=== PATIENT | male | born 1945 | race Asian ===

== ENCOUNTER 2024-12-14 07:15 | Day surgery (SDC) | payer OTHER, MEDICAID, SELFPAY ==
--- OUTSIDE RECORDS SUMMARY | 2024-10-29 10:09 | XMS_ITS | Patient Health Record ---
Author Organization [facility] Address [address] [place] [address] Care Team Providers Care Capital Campaign Fundraiser Name Role Phone Tabitha Chapman Primary Care Provider Unavailab Francisco Baker Unavailable [phone] Allergies No Known Allergies Reason For Referral Referring Provider First Name Tabitha Referring Provider Last Name Adela Referring Provider Speciality Internal M edicine Referred Organization [facility] Referred Provider Francisco Hinds Referred Address [address] [facility],[place], [place],[address],[place] Referred Provider Specialty Gastroentero logy General Notes Oma Perez 2024 03:50:02 PM >requested a dom referral from Dr. Chapman's office for visit with Dr. Hinds on 09-09-24 Clinical Notes Oma Perez 2024 03:52:13 PM >no referral required per Dr. Chapman's office Referral Priority Routine Medications Medication SIG (Take, Route, Frequency, Duration) Notes Start Date End Date Status Atorvastatin Calcium 80 MG 1 tablet Oral ly Once a day for 30 day(s) 09/09/2024 Active Metoprolol Succinate 25 MG 1 capsule Ora lly Once a day for 30 day(s) 09/09/2024 Active metFORMIN HCl ER 500 MG 1 tablet with ev ening meal Orally Once a day for 30 day(s) 09/09/2024 Active Aspirin 81 81 MG 1 tablet Orally Once a day for 30 day(s) 09/09/2024 Active Ciprofloxacin HCl 500 MG 1 tablet Orally every 12 hrs for 3 day(s) 09/09/2024 Active HumaLOG 100 UNIT/ML as directed Subcutaneous 09/09 Active Tamsulosin HCl 0.4 MG 1 capsule Orally O nce a day for 30 day(s) 09/09/2024 Active Furosemide 20 MG 1 tablet Orally Once a day for 30 day(s) 09/09/2024 Active Fluconazole 150 MG 1 tablet Orally for 10 day(s) 09/09/2024 Active Nitrofurantoin Macrocrystal 100 MG 1 capsule at bedtime with food or milk Orally Once a day for 10 day(s) 09/09/2024 Active Finasteride 5 MG 1 tablet Orally Once a day for 30 day(s) 09/09/2024 Active Immunizations Vaccine Route Administration Date Status Comme nts Influenza Unknown 12/11/2023 Administered Social History Tobacco Use: Social History Observation Description Date Details (start date - stop date) Never Smoker NA - NA Tobacco Control (Standard) Question Answer Notes Tobacco use: Nonsmoker AUDIT-C (Standard) Question Answer Notes Did you have a drink containing alcohol in the p ast year? No Points 0 Interpretation Negative Section Notes: Nonsmoker; no alcohol Problems Problem Type SNOMED Code ICD Code Onset Dates Problem Status W/U Status Risk Notes Problem Iron deficiency anemia (D50.9) Active confirmed Vital Signs Temperature 96.9 degrees Fahrenheit 09/09/2024 Blood pressure diastolic 01 mm Hg 09/09/2024 Height 66 in 09/09/2024 Blood pressure systolic 001 mm Hg 09/09/2024 Weight 154 lbs 09/09/2024 BMI 24.85 kg/m2 09/09/2024 Procedures Procedure Date Ordered Date Performed Result Body Sit e UPPER GI ENDOSCOPY 09/09/2024 N/A COLONOSCOPY 09/09/2024 N/A Encounters Encounter Location Date Provider Diagnosis [facility] [address] [place] [phone] 09/09/2024 Francisco Hinds Iron deficiency anemia D50.9 and Bloating R14.0 [facility] [address] [place] [phone] 09/09/2024 Francisco Hinds [facility] [address] [place] [phone] 09/10/2024 Francisco Hinds Assessments Encounter Date Diagnosis (ICD Code) Assessment Notes Treatment Notes Treatment Clinical Notes Section Notes 09/09/2024 Bloating (ICD-10 - R14.0) Need U/S, CT report, or any other abdominal xray reports from Dr. Chapman Overall, Mr. Funez appears well and does not seem to be having any particularly worrisome GI complaints at the present time. While he was found to have a mild anemia earlier in the year he seems to feel well with good energy and without any signs of bleeding. He does describe that he walks several miles every day.His abdominal symptoms seem to be nonspecific and not particularly worrisome at this time. We did review that it might be related to his diet given that it is quite spicy, he is now close to 81 years old, and perhaps is not tolerating it as well as he used to. I will obtain a copy of his ultrasound report for my review. I do not think he needs a CT scan of the abdomen at this time but that may need to be reevaluated depending upon the results of his upper endoscopy and colonoscopy. I did recommend that he undergo both an upper endoscopy and colonoscopy for evaluation of the iron deficiency anemia so as to rule out any possibilities of GI neoplasm, colon polyps, angiodysplasias, silent gastritis or ulcer disease with associated H.pylori, and celiac disease with iron malabsorption. Full consent has been obtained from him for both procedures, including risks of bleeding and perforation. The procedures will be done with monitored anesthesia care. He was given the below list of instructions regarding adjustment of his medications for the procedure. He will also require cardiology clearance prior to the procedures as well since he is cared for in [place] in that regard and the anesthesiologists will need that information prior to the procedures. I shall repeat a CBC and iron profile today to be sure it has not dropped significantly since the laboratories I saw from April. Mr. Funez and his son were comfortable with this plan. Thank you again for allowing me to participate in Mr. Funez's care. I shall continue to keep you advised of his progress. 09/09/2024 Iron deficiency anemia (ICD-10 - D50.9) Overall, Mr. Funez appears well and does not seem to be having any particularly worrisome GI complaints at the present time. While he was found to have a mild anemia earlier in the year he seems to feel well with good energy and without any signs of bleeding. He does describe that he walks several miles every day.His abdominal symptoms seem to be nonspecific and not particularly worrisome at this time. We did review that it might be related to his diet given that it is quite spicy, he is now close to 81 years old, and perhaps is not tolerating it as well as he used to. I will obtain a copy of his ultrasound report for my review. I do not think he needs a CT scan of the abdomen at this time but that may need to be reevaluated depending upon the results of his upper endoscopy and colonoscopy. I did recommend that he undergo both an upper endoscopy and colonoscopy for evaluation of the iron deficiency anemia so as to rule out any possibilities of GI neoplasm, colon polyps, angiodysplasias, silent gastritis or ulcer disease with associated H.pylori, and celiac disease with iron malabsorption. Full consent has been obtained from him for both procedures, including risks of bleeding and perforation. The procedures will be done with monitored anesthesia care. He was given the below list of instructions regarding adjustment of his medications for the procedure. He will also require cardiology clearance prior to the procedures as well since he is cared for in [place] in that regard and the anesthesiologists will need that information prior to the procedures. I shall repeat a CBC and iron profile today to be sure it has not dropped significantly since the laboratories I saw from [place]. Mr. Funez and his son were comfortable with this plan. Thank you again for allowing me to participate in Mr. Funez's care. I shall continue to keep you advised of his progress. Plan Of Treatment Pending Test Test Name Order Date UPPER GI ENDOSCOPY 09/09/2024 COLONOSCOPY 09/09/2024 IRON + IBC (FE) 09/09/2024 CBC w DIFF 09/09/2024 Ferritin 09/09/2024 Next Appt Details Provider Name:Francisco Levin Lizet , 12/14/2024 08:30:00 AM, [address] [place] [address] , [place], [place], [phone], Insurance Providers Payer Name Payer Address Payer Phone Subscriber Number Group Number Insured Name Patient Relationship to Insured Coverage Start Date Coverage End Date [facility] [address] [place] [id number] SHANICE FUNEZ Self - patient is the insured Medical (General) History Medical History History ICD Code IDDM Coronary artery --followed a t [facility]---stents placed in [place], and [place]G [place] Denies AR,CVA,Lung disease,renal disease hyperlipidemia BPH UTI Surgical History Surgery Date(Month/Year) Appendectomy 3V CABG 2014
--- OUTSIDE RECORDS SUMMARY | 2024-10-29 10:09 | XMS_ITS | Clinical Summary ---
Author Organization [facility] [address] Address [address] [place] [address] Phone Care Team Providers Care Testing Specialist Name Role Phone Tabitha Chapman MD Primary Care Provider [phone] Encounters Date Type Department Care Team Description 08/31/2024 Lab Requisition [facility] Lab [address] [facility] [place] [phone] Tabitha Chapman MD Type 2 diabetes mellitus with hyperglycemia (CMS/HCC V24, CMS/HCC V28) from Last 3 Months Surgical History Surgery Date Site/Laterality Comments CORONARY ARTERY BYPASS GRAFT PROCEDURE: HISTORICAL CABG OTHER SURGICAL HISTORY PROCEDURE: DRUG-ELUTING STENTS, SINGLE COLONOSCOPY PROCEDURE: HISTORICAL COLONOSCOPY Medical History Medical History Date Comments Anemia DX:Anemia Chronic ischemic heart disease D X:Chronic ischemic heart disease Diabetes mellitus type 2, co ntrolled, with complications (CMS/HCC V24, CMS/HCC V28) DX:Diabetes mellitus type 2, controlled, with complications ([facility]) Social History Tobacco Use Types Packs/Day Years Used Date Smoking Tobacco: Never Assessed Sex and Gender Information Value Date Recorded Sex Assigned at Not on file Legal Sex Male 2:43 AM EST Gender Identity Not on file Sexual Orientation Not on file Obstetrics History Last Filed Vital Signs Vital Sign Reading Time Taken Comments Blood Pressure 124/54 12/04/2021 2:10 PM EDT Pulse 70 12/04/2021 2:10 PM EDT Temperature - - Respiratory Rate - - Oxygen Saturation - - Inhaled Oxygen Concentration - - Weight 69.2 kg (152 lb 9.6 oz) 12/04/2021 2:10 P M EDT Height 154.9 cm (5' 1 ) 12/04/2021 2:10 PM EDT Body Mass Index 28.83 12/04/2021 2:10 PM EDT Plan of Treatment Health Maintenance Due Date Last Done Comments Diabetes: Annual Foot Exam 02/01/1955 Diabetes: Annual Retina Eye Exam 02/01/1955 DTaP,Tdap,and Td Vaccines (1 - Tdap) 1965 Pneumococcal Vaccine: 50+ Years (1 of 2 - PCV) 1965 Zoster Vaccines (1 of 2) 02/01/1996 RSV Immunization Adult Patients (1 - 1-dose 75+ series) 2021 Colorectal Cancer Screening: Stool Based Tests (FOBT/FIT) 02/25/2022 Falls Risk Assessment 02/25/2022 Hepatitis C Screening 02/25/2022 Medicare Annual Wellness Visit 02/25/2022 Social Influencers of Health Screening 02/25/2022 COVID-19 Vaccine (1 - 2023-2 5 season) 2023 Depression Screening 03/25/2024 Diabetes: Blood Sugar Contro l Test (HGBA1C) 11/11/2024 05/14/2024 Influenza Vaccine (#1) 2024 Diabetes: Annual Urine Albumin-Creatinine Ratio (uACR) 05/14/2025 05/14/2024 Diabetes: Annual GFR (Glomerular Filtration Rate) 07/24/2025 07/24/2024, 05/14/2024 Cholesterol Screening (Lipid Panel) 05/14/2029 05/14/2024 HIB Vaccines Aged Out No longer eligi ble based on patient's age to complete this topic HPV Vaccines Aged Out No longer eligi ble based on patient's age to complete this topic Hepatitis A Vaccines Aged Out No long er eligible based on patient's age to complete this topic Hepatitis B Vaccines Aged Out No long er eligible based on patient's age to complete this topic IPV Vaccines Aged Out No longer eligi ble based on patient's age to complete this topic MMR Vaccines Aged Out No longer eligi ble based on patient's age to complete this topic Meningococcal ACWY Vaccine Aged Out N o longer eligible based on patient's age to complete this topic Meningococcal B Vaccine Aged Out No l onger eligible based on patient's age to complete this topic RSV Immunization Patients Under 20 months Aged Out No longer eligible b ased on patient's age to complete this topic Varicella Vaccines Aged Out No longer eligible based on patient's age to complete this topic Procedures Procedure Name Priority Date/Time Associated Diagnosis Comments EXTERNAL COLONOSCOPY REPORT Routine 08/26/2024 10:45 AM EDT COMPREHENSIVE METABOLIC PANEL Routine 07/24/2024 11:39 AM EDT DM type 2 (diabetes mellitus, type 2) ([facility] V24, [facility] V28) Encounter for long-term (current) use of high-risk medication Abnormal blood chemistry Screening for endocrine, metabolic, and immunity disorder MICROALBUMIN CREATININE URINE RATIO Routine 05/14/2024 8:56 AM EST Gastric ulcer due to Helicobacter pylori Type II or unspecified type diabetes mellitus with renal manifestations, uncontrolled(250.42) ([facility] V24, [facility] V28) Enlarged prostate with urinary obstruction Elevated prostate specific antigen (PSA) HEMOGLOBIN A1C Routine 05/14/2024 8:47 AM EST Gastric ulcer due to Helicobacter pylori Type II or unspecified type diabetes mellitus with renal manifestations, uncontrolled(250.42) ([facility] V24, [facility] V28) Enlarged prostate with urinary obstruction Elevated prostate specific antigen (PSA) LIPID PANEL WITH REFLEX TO DIRECT LDL Routine 05/14/2024 8:47 AM EST Gastric ulcer due to Helicobacter pylori Type II or unspecified type diabetes mellitus with renal manifestations, uncontrolled(250.42) ([facility] V24, [facility] V28) Enlarged prostate with urinary obstruction Elevated prostate specific antigen (PSA) from Last 3 Months or Most Recently Relevant to Health Maintenance Results * External Colonoscopy Report (08/26/2024 10:45 AM EDT) Anatomical Region Laterality Modality Endoscopy us Historical Provider GI~PROCEDURE ORDERABLES F inal Result * (ABNORMAL) Comprehensive metabolic panel (07/24/2024 11:39 AM EDT) Sodium 138 133 - 145 mmol/L LAB CHEMISTRY METHOD 07/24/2024 1:35 PM EDT [facility] Potassium 4.3 3.5 - 5.5 mmol/L LAB CHEMISTRY METHOD 07/24/2024 1:35 PM [facility] Chloride 106 96 - 110 mmol/L LAB CHEMISTRY METHOD 07/24/2024 1:35 PM [facility] CO2 26 21 - 32 mmol/L LAB CHEMISTRY METHOD 07/24/2024 1:35 PM [facility] Anion Gap 6 3 - 11 LAB CHEMISTRY METHOD 07/24/2024 1:35 PM [facility] Glucose 109(H) 70 - 100 mg/dL LAB CHEMISTRY METHOD 07/24/2024 1:35 PM [facility] BUN 11 5 - 25 mg/dL LAB CHEMISTRY METHOD 07/24/2024 1:35 PM [facility] Creatinine 1.08 0.70 - 1.30 mg/dL LAB CHEMISTRY METHOD 07/24/2024 1:35 PM [facility] eGFR 70 >=60 mL/min/1. 73m2 LAB CHEMISTRY METHOD 07/24/2024 1:35 PM [facility] Comment:Calculation based on the Chronic Kidney Disease Epidemiology Collaboration (CKD-EPI) equation refit without adjustment for race. BUN/Creatinine Ratio 10.2 LAB CHEMISTRY METHOD 07/24/2024 1:35 PM [facility] Calcium 9.3 8.5 - 10.5 mg/dL LAB CHEMISTRY METHOD 07/24/2024 1:35 PM [facility] AST (SGOT) 12 10 - 42 unit/L LAB CHEMISTRY METHOD 07/24/2024 1:35 PM [facility] ALT (SGPT) 18 10 - 60 unit/L LAB CHEMISTRY METHOD 07/24/2024 1:35 PM [facility] Alkaline Phosphatase 60 42 - 121 unit/L LAB CHEMISTRY METHOD 07/24/2024 1:35 PM [facility] Total Protein 7.2 6.0 - 8.0 g/dL LAB CHEMISTRY METHOD 07/24/2024 1:35 PM EDT [facility] Albumin 3.7 3.2 - 5.0 g/dL LAB CHEMISTRY METHOD 07/24/2024 1:35 PM EDT [facility] Total Bilirubin 0.8 0.0 - 1.4 mg/dL LAB CHEMISTRY METHOD 07/24/2024 1:35 PM EDT [facility] Blood Venous blood specimen / Unknown Venipuncture / Unknown 07/24/2024 11:39 AM EDT 07/24/2024 11:51 AM EDT us Tabitha Chapman MD LAB BLOOD ORDERABLES Final Re sult Performing Organization Address [facility]/ZIP Co de Phone Number [facility] [address] [place] [address], [place] [phone] * (ABNORMAL) Microalbumin creatinine urine ratio (05/14/2024 8:56 AM EST) Creatinine, Urine 206.0 mg/dL LAB CHEMISTRY METHOD 05/14/2024 10:44 AM EST [facility] Microalb, Ur 50.4(H) 0.0 - 29.0 mg/L LAB CHEMISTRY METHOD 05/14/2024 10:44 AM EST [facility] Microalb/Crea t Ratio 24 <30 mg/g creat LAB CHEMISTRY METHOD 05/14/2024 10:44 AM EST [facility] Urine Urine specimen obtained by clean catch procedure / Unknown Non-blood Collection / Unknown 05/14/2024 8:56 AM EST 05/14/2024 8:56 AM EST us Tabitha Chapman MD LAB URINE ORDERABLES Final Re sult Performing Organization Address [facility]/ZIP Co de Phone Number [facility] [address] [place] [address], [place] [phone] * (ABNORMAL) Lipid panel with reflex to direct LDL (05/14/2024 8:47 AM EST) Cholesterol 111 0 - 200 mg/dL LAB CHEMISTRY METHOD 05/14/2024 10:52 AM EST [facility] Triglycerides 117 0 - 150 mg/dL LAB CHEMISTRY METHOD 05/14/2024 10:52 AM [facility] HDL 34(L) >=40 mg/dL LAB CHEMISTRY METHOD 05/14/2024 10:52 AM [facility] LDL Calculated 54 0 - 100 mg/dL LAB CHEMISTRY METHOD 05/14/2024 10:52 AM [facility] VLDL Cholesterol Bubba 23.4 mg/dL LAB CHEMISTRY METHOD 05/14/2024 10:52 AM [facility] Non HDL Chol. (LDL+VLDL) 77 <145 mg/dL LAB CHEMISTRY METHOD 05/14/2024 10:52 AM [facility] Chol/HDL Ratio 3.3 0.0 - 4.4 LAB CHEMISTRY METHOD 05/14/2024 10:52 AM [facility] Blood Venous blood specimen / Unknown Venipuncture / Unknown 05/14/2024 8:47 AM EST 05/14/2024 8:55 AM EST us Tabitha Chapman MD LAB BLOOD ORDERABLES Final Re sult [facility] [address] [place] [address], * (ABNORMAL) Hemoglobin A1c (05/14/2024 8:47 AM EST) Hemoglobin A1C 10.1(H) <6.5 % LAB CHEMISTRY METHOD 05/14/2024 2:20 PM [facility] Mean Bld Glu Estim. 243 mg/dL LAB CHEMISTRY METHOD 05/14/2024 2:20 PM EST [facility] Blood Venous blood specimen / Unknown Venipuncture / Unknown 05/14/2024 8:47 AM EST 05/14/2024 8:47 AM EST Tabitha Chapman MD LAB BLOOD ORDERABLES Final Re sult [facility] [address] [place] [address], from Last 3 Months or Most Recently Relevant to Health Maintenance Insurance MEDICAID - [place] [facility] [employer] Care Teams Testing Specialist Relationship Specialty Start Date End Date Tabitha Chapman MD [address] [facility] [address] [place], [place] PCP - General Internal Medicine 07/27/21
[2024-12-10 14:13] VITALS: BMI 24.9
--- NOTE | 2024-12-11 13:04 | HO.ANESPROP2 ---
Documented by User: Soraya Power NP 12/11/24 13:54 HPI - Anesthesia Eval Consult details Narrative: 79yo M for Upper Endoscopy and Colonoscopy CAD s/p stent 2004, CABG x 3 2014 - no cardiology follow up in 10 years Per daughter, pt asymptomatic with walks outside daily. Case reviewed with LM and Dr Hinds - will obtain EKG and lytes on DOS and eval PMFSH Past Medical History Medical History Vitamin B12 deficiency Post cardiotomy syndrome CKD (chronic kidney disease) stage 3, GFR 30-59 ml/min Elevated PSA Hydrocele Non-ischemic cardiomyopathy HTN (hypertension) Myocardial infarction Anemia UTI (urinary tract infection) BPH (benign prostatic hyperplasia) Hx of hyperlipidemia Diabetes Surgical History Surgical History Hx of cardiac catheterization (~11/2014) Hx of cystoscopy History of coronary artery stent placement (~2003) Hx of CABG (~01/05/15) Hx of appendectomy Social History Social History Patient Tobacco Use Status: Never used Tobacco Use of substances other than those prescribed or required for medical reasons: No Are you DNR?: No Advance Directives: No Advance Directives Information Provided: Yes Poor oral hygiene: No Meds Allergies Allergy/AdvReac Type Severity Reaction Status Date / Time empagliflozin (From Allergy Stomach Verified 12/14/24 07:47 Jardiance) Upset lisinopril Allergy Stomach Verified 12/14/24 07:47 Upset Home Medications ?Medication ?Instructions ?Recorded ?Confirmed ?Last Taken ?Type aspirin 81 mg tablet,delayed 81 mg PO DAILY 12/10/24 12/10/24 12/12/24 History release atorvastatin 80 mg tablet 80 mg PO DAILY 12/10/24 12/10/24 Unknown History ciprofloxacin HCl 500 mg tablet 500 mg PO BID 12/10/24 12/10/24 Unknown History finasteride 5 mg tablet 5 mg PO DAILY 12/10/24 12/10/24 Unknown History fluconazole 150 mg tablet 150 mg PO DIRECTED 12/10/24 12/10/24 Unknown History furosemide 20 mg tablet 20 mg PO DAILY 12/10/24 12/10/24 Unknown History insulin lispro 100 unit/mL 1 sliding scale dose subcut 12/10/24 12/10/24 12/14/24 History subcutaneous cartridge (Humalog USEASDIRECTD U-100 Insulin) metformin 500 mg tablet,extended 1,000 mg PO BID 12/10/24 12/10/24 Unknown History release 24 hr metoprolol tartrate 25 mg tablet 25 mg PO BID 12/10/24 12/10/24 12/14/24 History nitrofurantoin 100 mg capsule 100 mg PO BEDTIME 12/10/24 12/10/24 Unknown History tamsulosin 0.4 mg capsule 0.4 mg PO BEDTIME 12/10/24 12/10/24 Unknown History Exam Height,Weight and Vital Signs: Height 5 ft 6 in Weight 69.853 kg Assessment and Plan Assessment Anesthesia Assessment: Chart Reviewed Documented by User: Kailyn Carrizales MD 12/14/24 08:40 PMFSH Past Medical History Medical History Vitamin B12 deficiency Post cardiotomy syndrome CKD (chronic kidney disease) stage 3, GFR 30-59 ml/min Elevated PSA Hydrocele Non-ischemic cardiomyopathy HTN (hypertension) Myocardial infarction Anemia UTI (urinary tract infection) BPH (benign prostatic hyperplasia) Hx of hyperlipidemia Diabetes Family History Family history of problems with anesthesia: No Surgical History Surgical History Hx of cardiac catheterization (~11/2014) Hx of cystoscopy History of coronary artery stent placement (~2003) Hx of CABG (~01/05/15) Hx of appendectomy History of Problems with Anesthesia: No Social History Social History Patient Tobacco Use Status: Never used Tobacco Use of substances other than those prescribed or required for medical reasons: No Are you DNR?: No Advance Directives: No Advance Directives Information Provided: Yes Poor oral hygiene: No Meds Allergies Allergy/AdvReac Type Severity Reaction Status Date / Time empagliflozin (From Allergy Stomach Verified 12/14/24 07:47 Jardiance) Upset lisinopril Allergy Stomach Verified 12/14/24 07:47 Upset Home Medications ?Medication ?Instructions ?Recorded ?Confirmed ?Last Taken ?Type aspirin 81 mg tablet,delayed 81 mg PO DAILY 12/10/24 12/10/24 12/12/24 History release atorvastatin 80 mg tablet 80 mg PO DAILY 12/10/24 12/10/24 Unknown History ciprofloxacin HCl 500 mg tablet 500 mg PO BID 12/10/24 12/10/24 Unknown History finasteride 5 mg tablet 5 mg PO DAILY 12/10/24 12/10/24 Unknown History fluconazole 150 mg tablet 150 mg PO DIRECTED 12/10/24 12/10/24 Unknown History furosemide 20 mg tablet 20 mg PO DAILY 12/10/24 12/10/24 Unknown History insulin lispro 100 unit/mL 1 sliding scale dose subcut 12/10/24 12/10/24 12/14/24 History subcutaneous cartridge (Humalog USEASDIRECTD U-100 Insulin) metformin 500 mg tablet,extended 1,000 mg PO BID 12/10/24 12/10/24 Unknown History release 24 hr metoprolol tartrate 25 mg tablet 25 mg PO BID 12/10/24 12/10/24 12/14/24 History nitrofurantoin 100 mg capsule 100 mg PO BEDTIME 12/10/24 12/10/24 Unknown History tamsulosin 0.4 mg capsule 0.4 mg PO BEDTIME 12/10/24 12/10/24 Unknown History Exam Airway Mallampati Class: II TM Dist: >3cm Neck ROM: Limited Heart: rrr Lungs: cta Assessment and Plan Assessment Anesthesia Assessment: Anesthesia Plan Discussed Final Anesthetic Review Family History of Problems with Anesthesia: No History of Problems with Anesthesia: No NPO: Yes ASA Class: III Final Preanesthetic Review: No Changes in Pt Med Stat, Meds/Allgs Chart Reviewed, Consent Obtained/Reviewed and Anes Risks/Benef Reviewed Patient Risk: Intermediate Procedure Risk: Low Anesthetic Plan Anesthetic Plan: MAC: and Agree w/ Assess. and Plan Disposition: Standard PACU
--- NOTE | 2024-12-14 07:29 | ECG_ITS ---
Test Reason : PREOP Blood Pressure : */* mmHG Vent. Rate : 48 BPM Atrial Rate : 48 BPM P-R Int : 138 ms QRS Dur : 94 ms QT Int : 438 ms P-R-T Axes : 37 39 70 degrees QTcB Int : 391 ms Sinus bradycardia Otherwise normal ECG No previous ECGs available Referred By: Soraya Power Electronically Signed By: Ronnie Perez
[2024-12-14 07:33] VITALS: BMI 24.7
[2024-12-14 08:10] VITALS: BP 163/61; PULSE 54; RESP 16; TEMP 36.1; O2SAT 99
[2024-12-14 08:11] LABS: MANUAL DIFF FLAG NO
[2024-12-14 08:16] LABS: Hematocrit 41.8 % (42.0-52.0); Hemoglobin 13.8 g/dl (14.0-18.0); Imm Gran Abs Auto 0.04 X10*3/uL (0.00-0.03); Imm Gran Pct Auto 0.3 % (0.0-0.4); Lymphocytes Absolute Auto 2.3 X10*3/uL (1.2-4.9); Mean Corpuscular HGB Conc 33.0 g/dl (31.0-36.0); Mean Corpuscular Hemoglobin 27.8 pg (27.0-33.0); Mean Corpuscular Volume 84.1 fL (80.0-98.0); NRBC Abs Auto 0.000 X10*3/uL (0.0-0.012); NRBC Pct Auto 0.0 /100WBC (0.0-0.2); Platelet Count 227 X10*3/uL (160-400); Red Blood Count 4.97 X10*6/uL (4.60-5.80); White Blood Count 11.8 X10*3/uL (4.8-10.8)
[2024-12-14 08:17] LABS: Glucose, Whole Blood 120 mg/dL (60-115)
[2024-12-14 08:22] VITALS: PULSE 49
[2024-12-14 08:26] LABS: Anion Gap 11 (12-20); Blood Urea Nitrogen 8 mg/dL (9-16); Calcium 9.4 mg/dL (8.4-10.2); Carbon Dioxide 25 mmol/L (22-29); Chloride 108 mmol/L (96-108); Creatinine Clr Calc Pharmacy 52.3; Estimated Glomerular Filt Rate > 60; Potassium 4.0 mmol/L (3.3-5.1); Sodium 140 mmol/L (135-145)
[2024-12-14] MEDS: Lactated Ringers 1,000 ML 100 ML IVCONT (08:27)
[2024-12-14 08:35] LABS: INTERNATIONAL NORM RATIO 1.0 (0.9-1.1); Prothrombin Time 11.0 SEC (10.9-12.4)
[2024-12-14 10:05] VITALS: BP 106/48; PULSE 52; RESP 15; TEMP 36.1; O2SAT 99
--- NOTE | 2024-12-14 10:10 | P.BOP_ITS ---
Brief Operative Note Date of Service: 12/14/24 Pre-op diagnosis: Anemia Post-op diagnosis: other (Small hiatal hernia, Diverticulosis) Procedure: EGD with biopsies, Colonoscopy to the cecum and TI Surgeon: Francisco Hinds MD Anesthesia: MAC Was an Flat Sorter Processor used for this Procedure?: No Estimated blood loss (mL): 2.0 Pathology: other (A. 2nd/3rd portions of duodenum B. Gastric antrum) Condition: stable Disposition: PACU
[2024-12-14 10:13] VITALS: BP 113/50; PULSE 57; RESP 14; O2SAT 99
[2024-12-14 10:21] VITALS: BP 132/51; PULSE 50; RESP 16; TEMP 36.5; O2SAT 99
--- NOTE | 2024-12-14 11:17 | OP_ITS ---
DATE OF SERVICE: 12/14/2024 SURGEON: Francisco Hinds MD INDICATIONS: The patient presents for evaluation of iron-deficiency anemia. Full consent has been obtained from him for this, including risks of bleeding and perforation. PREOPERATIVE DIAGNOSIS: Iron deficiency anemia. POSTOPERATIVE DIAGNOSIS: PROCEDURE PERFORMED: Esophagogastroduodenoscopy with biopsies, and colonoscopy to the cecum and terminal ileum. ESTIMATED BLOOD LOSS: COMPLICATIONS: ANESTHESIA: Medication used, monitored anesthesia care. The patient was placed in the left lateral decubitus position. The Olympus video gastroscope was passed in the posterior oropharynx and upper esophagus under direct vision. The scope was passed slowly to the distal esophagus. The gastroesophageal junction appeared at 38 cm. This area appeared normal without any sign of esophagitis, Calvert esophagus, nor mass. The scope easily entered the stomach. There was a relatively minimal hiatal hernia. The scope was advanced to the pylorus and the duodenum was cannulated to the descending portion, The duodenum, including the bulb, appeared normal without mass or ulceration. Biopsies were obtained from the 2nd and 3rd portions. The scope was withdrawn back in the stomach. The gastric antrum and body appeared normal with good peristalsis. Biopsies were obtained from the antrum. The scope was retroflexed visualizing the proximal stomach carefully, which appeared normal, without any sign of mass or ulceration. The scope was straightened and withdrawn back to the esophagus. The esophageal mucosa appeared normal. The scope was withdrawn from the patient. He was turned around for the colonoscopy. The digital rectal exam revealed no abnormalities. The Olympus video pediatric colonoscope was entered into the rectum and advanced easily to the cecum. Once in the cecum, I did identify normal-appearing cecal pouch with appendiceal orifice and a normal-appearing ileocecal valve. The terminal ileum was cannulated and appeared normal. Scope withdrawn back in the colon. The entire cecum and ileocecal valve appeared normal. The scope was slowly withdrawn assessing all mucosal surfaces carefully. Preparation was excellent. I did not visualize any sign of polyps, colitis, nor angiodysplasia. There was a mild amount of sigmoid diverticulosis. In the rectum, scope was retroflexed visualizing internal hemorrhoids, but no other pathology. The rectal mucosa appeared normal. The scope was straightened and withdrawn from the patient. He tolerated both procedures well and was returned to the recovery area in stable condition. ASSISTANTS: SPECIMENS: POSTOPERATIVE DIAGNOSES: Iron deficiency anemia, small hiatal hernia, rule out celiac disease, rule out Helicobacter pylori, diverticulosis, and internal hemorrhoids. IMPRESSION: 1. Small hiatal hernia, otherwise normal upper endoscopy. 2. Diverticulosis. 3. Internal hemorrhoids. PLAN: The results of the biopsy will be checked. Given his age and the negative colonoscopy, I do not think he would need any further screening colonoscopies. His laboratories from today showed a Hgb of 13.8 with a normal MCV. Based on the normal hemoglobin today, I do not think he would need any further GI workup in regard to the anemia. He does have some bloating and gas, which may be dietary related. He looks very well. I do not think he needs any particular workup in that regard. He can use some symptomatic treatment such as [id number] simethicone as needed. Even if H.pylori is present in the gastric biopsies I would not necessarily treat that given no sign of peptic ulcer disease or significant inflammation in the upper GI tract, no specific symptoms in that regard, and potential adverse effects of antibiotics. He will see me on a p.r.n. basis. This has been discussed with his son, Vanda. MD JOSE Jett/MICHAEL / [phone] CA[facility]
== END 2024-12-14 10:37 | disposition home or self-care (01) ==
PROVIDERS: Nurse Practitioner; PCP Internal Medicine; Visit Provider Internal Medicine
PROC: (CPT 45378; principal; 2024-12-14 08:30)
DX: D50.9 Iron deficiency anemia, unspecified (principal); Z86.0101 Personal history of adenomatous and serrated colon polyps; K57.30 Diverticulosis of large intestine without perforation or abscess without bleeding; K64.8 Other hemorrhoids; K29.50 Unspecified chronic gastritis without bleeding; B96.81 Helicobacter pylori [H. pylori] as the cause of diseases classified elsewhere; K44.9 Diaphragmatic hernia without obstruction or gangrene; R14.3 Flatulence; R14.0 Abdominal distension (gaseous); I25.10 Atherosclerotic heart disease of native coronary artery without angina pectoris; Z95.5 Presence of coronary angioplasty implant and graft; Z95.1 Presence of aortocoronary bypass graft; E78.5 Hyperlipidemia, unspecified; E11.9 Type 2 diabetes mellitus without complications; N40.0 Benign prostatic hyperplasia without lower urinary tract symptoms; Z79.4 Long term (current) use of insulin; Z79.82 Long term (current) use of aspirin; Z79.899 Other long term (current) drug therapy
CPT/HCPCS: 45378; 43239; 36415; 80048; 82947; 85025; 85610; 88305; 88313; 88342; 93005; J2704; J3010

== ENCOUNTER → 2024-12-14 07:29 | Outpatient (BNV) | payer OTHER, MEDICAID, SELFPAY | PROVIDERS: PCP Internal Medicine; Visit Provider Internal Medicine Cardiovascular Disease | DX: R00.1 Bradycardia, unspecified (principal) | CPT/HCPCS: 93010 ==